=== PATIENT | male | born 1945 | race Caucasian/White ===

== ENCOUNTER 2020-06-25 06:10 | Day surgery (SDC) | payer OTHER ==
[2020-06-22 13:30] LABS: BASOPHIL % 0.4 % (0.2-1.5); PLATELET COUNT 232 x10^3mcL (152-348); RED CELL DISTRIBUTION WIDTH 13.2 % (12.1-16.2)
[2020-06-22 13:37] LABS: CALCIUM 8.9 mg/dL (8.5-10.1); CARBON DIOXIDE 26.4 mmol/L (21-32); CHLORIDE SERUM 103 mmol/L (98-107); CREATININE SERUM 1.3 mg/dL (0.7-1.3); GLUCOSE SERUM 93 mg/dL (74-106); SODIUM SERUM 139 mmol/L (136-145)
[2020-06-22 13:42] LABS: ALKALINE PHOSPHATASE 54 U/L (46-116); ALT/SGPT 43 U/L (16-63); AST/SGOT 26 U/L (15-37); BILIRUBIN TOTAL 0.65 mg/dL (0.20-1.00); TOTAL PROTEIN, SERUM 7.5 g/dL (6.4-8.2)
[2020-06-22 13:48] LABS: rbc morphology (normal/abnorm) NORMAL (NORMAL)
--- NOTE | 2020-06-22 14:19 | NUR ---
COPY OF LABS, CXR AND EKG FAXED TO DR ROBLEDO AND COPY LEFT FOR ANESTHESIA TO REVIEW.
--- NOTE | 2020-06-23 11:55 | NUR ---
RECEIVED NOTE BACK FROM ANESTHESIOLOGIST Eric GUTIERRES MD. EKG, CXR AND LABS REVIEWED, OK FOR SURGERY.
[~2020-06-25] VITALS: Ht 185.4 cm; Wt 108.9 kg
[2020-06-25 06:47] VITALS: BP 151/77
[2020-06-25 11:00] VITALS: BP 145/77
== END 2020-06-25 10:50 | disposition home or self-care (01) ==
LOC: OR 06:10
PROVIDERS: ATTEND Urology
DX: R97.20 Elevated prostate specific antigen [PSA] (principal)
CPT/HCPCS: J0696; J2001